=== PATIENT | male | born 1975 | race Caucasian/White ===

== ENCOUNTER 2016-04-21 19:10 | Emergency (ER) | payer OTHER ==
[2016-04-21 20:10] VITALS: BP 115/73; PULSE 92; RESP 16; TEMP 97.5; O2SAT 95
--- NOTE | 2016-04-21 20:26 | UCPHY ---
H & P Time Seen by Provider: 04/21/16 19:51 Patient Type: Established HPI/ROS: This patient has a left frontal headache 7/10 achy and sharp in nature. The symptoms came on gradually over the past few days. He reports 80% improvement since taking aspirin prior to arrival with no other exacerbating or alleviating factors. He had a antecedent URI consisting of nasal congestion and a cough last week. The cough is resolved the nasal congestion persists. ROS: No high fevers or chills. No confusion. No other neuro symptoms. No recent trauma. HEENT: No ear pain currently. No vision changes. Neuro: No focal numbness tingling or weakness. 7 point ROS is otherwise negative Past Medical/Surgical History: He had normal MRI and MRA neck in January of 2014 at [facility]. I reviewed these study results. He has some chronic neck pain for which she takes some kind of CBD/THC oil orally Social History: Former street drug addict clean since 2008 Smoking Status: Never smoked Physical Exam: Physical exam: Vital signs are normal General: Patient is in no acute distress. HEENT: Is no external evidence of trauma on exam. He has sinus tenderness to percussion over the left frontal sinus. This reproduces his pain. Nose atraumatic. Ears: Clear bilaterally with no hemotympanum. Oropharynx: No dental trauma or malocclusion. No intraoral lacerations. Eyes: Pupils are equal and reactive to light. Extraocular motions are intact. Optic fundi: Clear with no papilledema or hemorrhage. Neck: Trachea is midline with no stridor. The patient has no midline neck tenderness and retains a full range of motion without increase in pain. Lungs: Clear to auscultation bilaterally Cardiac: Regular rate and rhythm no murmur gallop or rub. Back: Nontender Neuro: GCS of 15. Cranial nerves II through XII intact. Cerebellar exam is normal as judged by symmetric rapid hand movements bilaterally. No pronator drift. No sensory or motor deficits are appreciated. Initial differential diagnosis: Frontal sinusitis, cluster headache, migraine headache, tension headache doubt intracranial pathology. Constitutional: Initial Vital Signs Temperature (C) 36.4 C 04/21/16 20:06 Heart Rate 92 04/21/16 20:06 Respiratory Rate 16 04/21/16 20:06 Blood Pressure 115/73 04/21/16 20:06 O2 Sat (%) 95 04/21/16 20:06 O2 Delivery Mode Room Air Allergies/Adverse Reactions: TREE NUTS Allergy (Mild, Uncoded 04/21/16 20:03) NAUSEA/HEADACHE Home Medications: Medication Instructions Recorded Acyclovir 04/21/16 Azithromycin [Zithromax] 250 mg PO DAILY #6 tab 04/21/16 Fluticasone Nasal [Flonase Nasal 2 sprays NASAL DAILY #1 mdi 04/21/16 [place] (RX)] Vyvanse 04/21/16 Wellbutrin 150mg SR (*) 04/21/16 MDM/Departure - [facility] ED Course/Re-evaluation: This patient appears clinically well. We opted to hold on further workup or imaging at this time given his normal vital signs a good clinical appearance. There is no focal neuro findings or other concerning findings. - Depart Disposition: Home, Routine, Self-Care Clinical Impression: Frontal sinusitis Qualifiers: Chronicity: acute Recurrence: non-recurrent Qualified Code(s): J01.10 - Acute frontal sinusitis, unspecified Condition: Good Instructions: Sinusitis (ED) Additional Instructions: Diagnosis: Left frontal sinusitis Plan: Warm packs Ibuprofen or Aleve Tylenol in addition as needed for pain Flonase steroid nasal spray Humidifier If your symptoms are still not improving over the next few days this plan or if he developed fevers other worsening symptoms, then start the antibiotic and take as directed in addition. Go to the emergency department for any significant worsening despite the treatment plan. Prescriptions: Azithromycin [Zithromax] 250 mg PO DAILY #6 tab Fluticasone Nasal [Flonase Nasal [place] (RX)] 2 sprays NASAL DAILY #1 mdi Referrals: CHEN LEMON [Primary Care Provider] - As per Instructions - PQRS PQRS Measurement: NA
== END 2016-04-21 20:20 | disposition home or self-care (01) ==
LOC: CED 19:10
DX: J01.10 Acute frontal sinusitis, unspecified (principal)
CPT/HCPCS: 99214-PO; G0463-PO